=== PATIENT | male | born 1990 | race Caucasian/White ===

== ENCOUNTER 2017-06-26 18:38 | Inpatient (IN) | payer BC, OTHER ==
[~2017-06-26] VITALS: Ht 180.3 cm; Wt 68.9 kg
[2017-06-27] MEDS ORDERED: HYDROXYZINE PAMOATE 25 MG CAPSULE PO PRN ×2 (00:30→10:45)
[2017-06-27] MEDS ORDERED: diphenhydrAMINE 50 MG CAPSULE PO PRN (00:30)
[2017-06-27] MEDS ORDERED: ACETAMINOPHEN 325 MG TABLET PO PRN (00:30)
[2017-06-27] MEDS ORDERED: CLONIDINE HCL 0.1 MG TABLET PO PRN (00:30)
[2017-06-27] MEDS ORDERED: ONDANSETRON 4 MG/2 ML VIAL IM PRN (00:30)
[2017-06-27] MEDS ORDERED: DIAZEPAM 5 MG TABLET PO PRN (00:30)
[2017-06-27] MEDS ORDERED: LORAZEPAM 2 MG/1 ML VIAL IM PRN (00:30)
[2017-06-27] MEDS ORDERED: LOPERAMIDE HCL 2 MG CAPSULE PO PRN ×2 (00:30)
[2017-06-27] MEDS ORDERED: MIRALAX 17 GM POWD.PACK PO PRN (00:30)
[2017-06-27] MEDS ORDERED: MAGNESIUM HYDROXIDE 30 ML LIQUID UDC PO PRN (00:30)
[2017-06-27] MEDS ORDERED: IBUPROFEN 400 MG TABLET PO PRN (00:30)
[2017-06-27] MEDS ORDERED: METHOCARBAMOL 750 MG TABLET PO PRN (00:30)
[2017-06-27] MEDS ORDERED: DIAZEPAM 10 MG TABLET PO PRN (00:30)
[2017-06-27] MEDS ORDERED: MAG HYDROX/AL HYDROX/SIMETH 30 ML LIQUID UDC PO PRN (00:30)
[2017-06-27] MEDS ORDERED: ONDANSETRON ODT 4 MG TAB.RAPDIS SL PRN (00:30)
--- NOTE | 2017-06-27 00:50 | NUR ---
PRE-ADMISSION NOTE Pt is a 26 y/o male, seen at intake, AAOx4, no SOB with mild anxiety noted at this time. Discussed with patient the admission policies of the unit. Patient is coherent and able to respond to questions appropriately. Pt is ambulatory with steady gait. Vital signs taken and as follows: BP: 129/80, P: 83, R: 18, O2: 98%, T: 98.2, PA: 0. Weight 152, height 511 Pt verbalized understanding of instructions and teachings regarding disposal of narcotic and other controlled home medications, unit protocols such as taking of vital signs Q4H and handling and disposal of contraband. Will continue with admission upon pts arrival on the unit.
[2017-06-27 01:00] VITALS: BP 129/80
--- NOTE | 2017-06-27 01:00 | NUR ---
ADMISSION NOTE Pt is a 26 y/o male admitted on 06/27/17 for BENZO/Opiate dependence. Pt is reports allergies to Naloxone, reports history of seizure 1.5 years ago d/t Benzo withdrawal. Pt was able to provide UDS. Upon admission CIWA 12, BP: 129/80, P: 83, R: 18, O2: 98%, T: 98.2, PA: 0. Weight 152, height 511. Pt reports he does not have a primary care provider, smokes 1 pack of cigarettes/daily. Pt denies being hospitalized within past 30 days. Pt is able to understand and respond to all questions pertaining to his hospitalization. Substance Abuse History is as follows: 1.Xanax 16-20mg/daily, last intake of 8mg on 06/26/2017, as this rate for the past 3 months. 2.Heroin IV 0.5g/daily, last intake of 0.1g on 06/26/2017, at this rate for the past 3 months 3.Subutex SL 24mg/daily, last intake of 16mg on 06/26/2017, at this rate for the past 1 month. 4.Marijuana 1 bowl occasionally, last intake of 1 bowl on 06/26/2017, at this rate for 3 months. Pt reports he has been to 20 treatment facilities. Pt reports he has been to [facility] in [place] 3 times. Pt reports his longest sobriety period was for 11 months when he was 20 years ago. Pt reports regarding family history of substance abuse that his father has history of ETOH abuse. PMH: Anxiety, depression, Bipolar and withdrawal induced seizures. Upon assessment, pt is AAOx4, pt is mildly intoxicated, presents with anxiety, skin is flushed, and has mild chills and restlessness, irritated, tremors noted. Respirations even and unlabored. Denies SOB, chest pain, N/V/D. Bowel sounds active x 4, abdomen soft. PERRLA. Skin intact, no open wounds noted. Pt denies SI/HI. Educational information provided and left at bedside. Pt oriented to room and encouraged to notify staff with any concerns. Safety measures in place. Call light within reach, side rails up x 2, bed locked and in low position. Will continue to monitor.
[2017-06-27 01:06] LABS: BASOPHILS % (AUTO) 0.3 % (0.0-2.0); EOSINOPHILS # (AUTO) 0.3 K/uL (0.0-0.7); EOSINOPHILS % (AUTO) 3.8 % (0.0-7.0); HEMATOCRIT 46.1 % (36.7-47.1); HEMOGLOBIN 16.3 g/dL (12.5-16.3); LYMPHOCYTES # (AUTO) 3.4 K/uL (20.0-40.0); LYMPHOCYTES % (AUTO) 42.8 % (20.5-51.5); MEAN CORPUSCULAR HEMOGLOBIN 31.5 uug (23.8-33.4); MEAN CORPUSCULAR HGB CONC 35 g/dL (32.5-36.3); MEAN CORPUSCULAR VOLUME 89.3 fL (73.0-96.2); MONOCYTES # (AUTO) 0.9 K/uL (2.0-10.0); NEUTROPHILS # (AUTO) 3.4 K/uL (1.8-8.9); NEUTROPHILS % (AUTO) 42.1 % (38.5-71.5); PLATELET COUNT (AUTO) 285 K/uL (152-348); RED BLOOD CELL COUNT(AUTO) 5.16 MIL/uL (4.06-5.63)
[2017-06-27 01:22] LABS: ALANINE AMINOTRANSFERASE 39 U/L (16-63); ALKALINE PHOSPHATASE 117 U/L (50-136); AMYLASE 38 U/L (25-115); ASPARTATE AMINOTRANSFERASE 23 U/L (15-37); BILIRUBIN,TOTAL 0.4 mg/dL (0.2-1.0); CARBON DIOXIDE 27 mmol/L (21-32); CHLORIDE 106 mmol/L (98-107); CREATININE 0.9 mg/dL (0.6-1.3); GLUCOSE 102 mg/dL (74-106); LIPASE 108 U/L (73-393); MAGNESIUM 1.7 mg/dL (1.8-2.4); POTASSIUM 4.2 mmol/L (3.5-5.1); TOTAL PROTEIN, SERUM 7.6 g/dL (6.4-8.2); UREA NITROGEN, BLOOD 10 mg/dL (7-18)
[2017-06-27 01:26] LABS: *AMPHETAMINE, URINE NEGATIVE (NEGATIVE); *BARBITURATE, URINE NEGATIVE (NEGATIVE); *CANNABINOID, URINE POSITIVE (NEGATIVE); *COCCAINE, URINE NEGATIVE (NEGATIVE); *OPIATE, URINE NEGATIVE (NEGATIVE); *PHENCYCLIDINE SCREEN,URINE NEGATIVE (NEGATIVE)
[2017-06-27] MEDS ORDERED: ALPR2TAB2 PO (01:28)
[2017-06-27] MEDS ORDERED: BUPR8TAB4 SL (01:28)
[2017-06-27] MEDS ORDERED: QUET50TA PO (01:28)
[2017-06-27] MEDS ORDERED: QUET100T PO (01:28)
[2017-06-27 01:38] LABS: THYROID STIMULATING HORMONE 1.886 mIU/mL (0.358-3.740)
[2017-06-27] MEDS ORDERED: QUETIAPINE FUMARATE 100 MG TABLET PO ONE (01:45)
[2017-06-27] MEDS: DIAZEPAM 10 MG TABLET PO PRN ×2 (01:52→08:04)
--- NOTE | 2017-06-27 01:53 | NUR ---
RN note PRN Valium Pt noted to be anxious and fidgety. CIWA=12. Administered Valium 10 mg PO PRN as ordered. Will reassess.
[2017-06-27 01:55] LABS: ETHANOL < 3 MG/DL (0-0)
[2017-06-27] MEDS ORDERED: DIAZEPAM 10 MG TABLET ONE ×2 (01:56→02:07)
[2017-06-27] MEDS ORDERED: METHOCARBAMOL 750 MG TABLET ONE (01:57)
[2017-06-27] MEDS ORDERED: QUETIAPINE FUMARATE 100 MG TABLET ONE (01:59)
--- NOTE | 2017-06-27 02:53 | NUR ---
Upon reassessment of Valium, pt is resting in bed eyes closed, respirations even/unlabored. Safety measures in place, will continue to monitor.
--- NOTE | 2017-06-27 02:55 | NUR ---
RN note reassess Pt's CIWA=7. Pt verbalized feeling less anxious and appears calm.
[2017-06-27 04:00] VITALS: BP 124/85
--- NOTE | 2017-06-27 04:00 | NUR ---
CIWA/COWS deferred d/t pt sleeping to assess while pt is awake as ordered. BP 124/85, pulse 69, resp 18, SpO2 100% room air, temp 98.[address], will continue to monitor.
--- NOTE | 2017-06-27 07:10 | NUR ---
End of Shift Pt is a 26 year old male admitted for Benzo/Opiate dependence. Pt reports using Xanax, Heroin IV, Subutex SL and Marijuana. PMH: anxiety, depression, bipolar and withdrawal induced seizures. Pt reports allergies to naloxone, fall/seizure precautions, regular diet and full code. During shift, Seroquel and Valium administered for CIWA 12 upon reassessment, pt was sleeping in bed, respirations even/unlabored. Pt slept for 3 hours, intake of 350 ml PO, voids x1and stool x0. Safety measures in place, call light within reach, side rails up x2, bed locked and in low position. Endorsed to day shift nurse.
[2017-06-27 08:00] VITALS: BP 115/71
--- NOTE | 2017-06-27 08:05 | NUR ---
START OF SHIFT: RECEIVED PT A/O X 4. HE IS FIDGETY AND C/O RESTLESSNESS,ANXIETY,IRRITABILITY,TREMORS AND SWEATS. CIWA 9. PRN VALIUM 5 MG PO PRN GIVEN FOR S/S OF W/D . ENCOURAGED INCREASED FLUIDS. SCHEDULED MEDS ADMINISTERED. WILL MONITOR EFFECTIVENESS OF PRN MEDICATION. WILL CONTINUE TO MONITOR.
[2017-06-27] MEDS: MULTIVITAMINS,THERAPEUTIC TABLET PO SCH (08:08)
--- NOTE | 2017-06-27 09:05 | NUR ---
PRN ATIVAN EFFECTIVE AEB CIWA 5. WILL CONTINUE TO MONITOR AND OFFER SUPPORT.
[2017-06-27] MEDS ORDERED: BUPRENORPHINE HCL 2 MG TAB.SUBL SL PRN (10:00)
[2017-06-27] MEDS ORDERED: Medication Not On Formulary EA (Quetiapine Fumarate (Seroquel) 50 MG) PO SCH (10:45)
[2017-06-27 12:00] VITALS: BP 114/78
[2017-06-27] MEDS: QUETIAPINE FUMARATE 25 MG TABLET PO SCH ×2 (12:36→16:38)
[2017-06-27] MEDS: PHENOBARBITAL 60 MG TABLET PO SCH ×3 (12:40→21:27)
[2017-06-27] MEDS: BUPRENORPHINE HCL 2 MG TAB.SUBL SL SCH ×3 (12:41→21:27)
[2017-06-27 16:00] VITALS: BP 114/78
[2017-06-27] MEDS ORDERED: MAGNESIUM OXIDE 400 MG TABLET PO ONE (17:00)
--- NOTE | 2017-06-27 18:44 | NUR ---
END OF SHIFT: PT STARTED ON PHENOBARBITAL AND SUBUTEX TAPER TODAY. PRN VALIUM GIVEN AND EFFECTIVE THIS AM BEFORE TAPER STARTED. LAST COWS 8 CIWA 6.HE RESTED ON AND OFF MOST OF SHIFT AND WAS COMPLIANT WITH INCREASED FLUIDS. WILL PASS SHIFT REPORT TO ONCOMING NIGHT NURSE.
--- NOTE | 2017-06-27 19:10 | NUR ---
Start of Shift Patient Received. Patient is a 26 year old male admitted on 06/27/17 for Benzo and Opiate Dependence under the care of Dr. Bustos. Patient continues on a 6 day Phenobarbital and 5 day Subutex taper. Patient verbalizes allergies to Naloxone, wishes to be full code, following a regular diet, placed on fall and seizure precautions, and skin noted intact. Past medical history noted as Anxiety, Depression, Bipolar disorder, history of seizures. Per endorsement, patient was given PRN Valium 5mg given with medication noted to be effective. Last noted COWS 5 and CIWA 7. All needs attended to promptly. Will continue plan of care as ordered.
[2017-06-27 20:30] VITALS: BP 142/87
[2017-06-27] MEDS: QUETIAPINE FUMARATE 100 MG TABLET PO SCH (21:26)
[2017-06-27] MEDS: PREGABALIN 25 MG CAPSULE PO SCH (21:26)
[2017-06-28 00:25] VITALS: BP 121/79
[2017-06-28 04:04] VITALS: BP 114/75
--- NOTE | 2017-06-28 07:01 | NUR ---
End of Shift Patient is in bed sleeping. Breathing even and non labored. Patient is a 26 year old male admitted on 06/27/17 for Benzo and Opiate Dependence under the care of Dr. Bustos. Patient continues on a 6 day Phenobarbital and 5 day Subutex taper. Patient verbalizes allergies to Naloxone, Full Code, Regular Diet, placed on fall and seizure precautions, and skin noted intact. Past medical history noted as Anxiety, Depression, Bipolar disorder, history of seizures. No PRN Medications administered. Last noted COWS 10 and CIWA 10. All needs attended to promptly. Will endorse to continue plan of care as ordered.
[2017-06-28 08:00] VITALS: BP 120/79
--- NOTE | 2017-06-28 08:05 | NUR ---
START OF SHIFT: RECEIVED PT A/O X 4. HE C/O SWEATS,CHILLS,BODY ACHES AND ANXIETY. FINE TREMORS NOTED TO HANDS. PHENOBARB/SUBUTEX TAPERS IN PROGRESS TO MANAGE S/S OF W/D.COWS 8 CIWA 7. ENCOURAGED INCREASED FLUIDS TO ASSIST IN FACILITATING DETOX PROCESS. ENCOURAGED GROUP ATTENDANCE TODAY TO IMPROVE COPING SKILLS AND PREVENT RELAPSE. WILL CONTINUE TO MONITOR AND MANAGE S/S OF W/D.
[2017-06-28] MEDS: MULTIVITAMINS,THERAPEUTIC TABLET PO SCH (08:47)
[2017-06-28] MEDS: PREGABALIN 25 MG CAPSULE PO SCH ×3 (08:48→20:34)
[2017-06-28] MEDS: BUPRENORPHINE HCL 2 MG TAB.SUBL SL SCH ×3 (08:48→20:34)
[2017-06-28] MEDS: PHENOBARBITAL 60 MG TABLET PO SCH ×4 (08:48→20:34)
[2017-06-28] MEDS: QUETIAPINE FUMARATE 25 MG TABLET PO SCH ×3 (08:48→16:45)
[2017-06-28] MEDS ORDERED: PHENOBARBITAL 60 MG TABLET PO SCH (09:00)
[2017-06-28] MEDS ORDERED: TUBERCULIN,PURIF.PROT.DERIV. 5 TU/0.1 ML TEST ID ONE (09:00)
[2017-06-28 10:08] LABS: HEPATITIS B SURFACE AG Negative (Negative)
[2017-06-28] MEDS: DIAZEPAM 10 MG TABLET PO PRN ×2 (11:09→15:11)
--- NOTE | 2017-06-28 11:10 | NUR ---
PRN VALIUM 10 MG GIVEN FOR REPORTED ANXIETY,RESTLESSNESS AND TREMORS. CIWA 9. WILL MONITOR EFFECTIVENESS.
[2017-06-28 12:00] VITALS: BP 119/81
--- NOTE | 2017-06-28 12:10 | NUR ---
PRN VALIUM EFFECTIVE. CIWA NOW 5. WILL CONTINUE TO MONITOR AND MANAGE S/S OF W/D.
--- NOTE | 2017-06-28 13:40 | NUR ---
TRANSFER OF CARE TO RECEIVING RN
--- NOTE | 2017-06-28 13:45 | NUR ---
ENDORSEMENT RECEIVED FROM OUTGOING RN Received report from outgoing RN regarding patient. Sheetrock Applicator will be resuming care of patient.
--- NOTE | 2017-06-28 15:11 | NUR ---
PRN VALIUM Patient's CIWA 10. PRN Valium 10mg po tab given. Will continue to monitor patient.
[2017-06-28 16:00] VITALS: BP 135/80
--- NOTE | 2017-06-28 16:11 | NUR ---
REASSESSMENT PRN VALIUM Patient's CIWA 6. Med effective.
--- NOTE | 2017-06-28 18:31 | NUR ---
END OF SHIFT Patient is 26 year old male admitted for medically supervised withdrawal from alprazolam, heroin, and buprenorphine. Patient is full code with allergy to naloxone. On Phenobarbital and subutex taper. Most recent CIWA: 6 and COWS: 7. Reports anxiety, body aches, tremors, sweating and tingling sensation. Denies stuffy nose, restlessness, stomach cramps, nausea, diarrhea, and goosebumps at this time. Med complaint this shift. PRN valium given (CIWA 10) given, effective (CIWA 6). Ambulating with steady gait, no falls noted. BM X1 reported. 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
--- NOTE | 2017-06-28 19:15 | NUR ---
Start of Shift Patient Received. Patient is in his room, awake, alert and verbally responsive. Breathing even and non labored. Patient is a 26 year old male admitted on 06/27/17 for Benzo and Opiate Dependence under the care of Dr. uBstos. Patient continues on a 6 day Phenobarbital and 5 day Subutex taper. Patient verbalizes allergies to Naloxone, Full Code, Regular Diet, placed on fall and seizure precautions, and skin noted intact. Past medical history noted as Anxiety, Depression, Bipolar disorder, history of seizures. Per endorsement, Patient was given Valium 10mg x2 for increased signs and symptoms of withdrawal with medication noted to be effective. Last noted COWS 7 and CIWA 6. All needs attended to promptly. Will endorse to continue plan of care as ordered.
[2017-06-28 20:28] VITALS: BP 118/73
[2017-06-28] MEDS: QUETIAPINE FUMARATE 100 MG TABLET PO SCH (20:34)
[2017-06-29 00:20] VITALS: BP 123/79
[2017-06-29 04:31] VITALS: BP 119/76
--- NOTE | 2017-06-29 07:09 | NUR ---
End of Shift Patient Received. Patient is in bed sleeping. Breathing even and non labored. No signs of pain or discomfort. Patient is a 29 year old female admitted on 06/28/17 for Opiate Dependence under the care of Dr. Bustos. Patient was placed on PRN medications for increased signs and symptoms of withdrawal. Patient verbalized no known allergies, wishes to be full code, following a regular diet, placed on fall and seizure precautions, and skin noted intact. Patients past medical history noted as Anxiety and Depression. No PRN medications noted. Last noted COWS 2. All needs attended to promptly. Will endorse to continue plan of care as ordered. Addendum: 06/29/17 at 0712 by GRAYSON MAYS LVN Entered in Error WRONG in Error
--- NOTE | 2017-06-29 07:15 | NUR ---
End of Shift Patient is in bed sleeping. Breathing even and non labored. No signs of pain or discomfort. Patient is a 26 year old male admitted on 06/27/17 for Benzo and Opiate Dependence under the care of Dr. Bustos. Patient continues on a 6 day Phenobarbital and 5 day Subutex taper. Patient verbalizes allergies to Naloxone, Full Code, Regular Diet, placed on fall and seizure precautions, and skin noted intact. Past medical history noted as Anxiety, Depression, Bipolar disorder, history of seizures. No PRN medications administered. Last noted COWS 7 and CIWA 6. All needs attended to promptly. Will endorse to continue plan of care as ordered.
--- NOTE | 2017-06-29 07:40 | NUR ---
START OF SHIFT Rcvd endorsement from ongoing nurse, client is in room, he is a/o x4. Client presents with depressed mood, flat affect, and clammy skin, enlarged pupils. He reports body aches, chills/colds, stomach cramps, and fatigue. Client stated that he refused TB test. Encourage client to attend to group therapy for skills to maintain sober. Encourage client to increase PO fluid intake as tolerated to facilitate detox. Client is a 26 y/o male, admitted to [facility] for withdrawal from alprazolam, heroin, and buprenorphine. Client is on 6 day Phenobarbital taper, and 5 day Ativan tape, tolerating well, (day 3). Last CIWA 6/COWS 7 @ 1999. Client had an uneventful night, he slept 8.5 hrs. He reports a hx of seizures, (18 months ago). Client reports Allergy to Naloxone, full code, regular diet. Client side rails x 2 up/padded. Seizure precautions. Call light within reach.
[2017-06-29 08:20] VITALS: BP 117/64
[2017-06-29] MEDS: QUETIAPINE FUMARATE 25 MG TABLET PO SCH ×3 (08:22→16:45)
[2017-06-29] MEDS: PHENOBARBITAL 60 MG TABLET PO SCH ×2 (08:22→14:22)
[2017-06-29] MEDS: MULTIVITAMINS,THERAPEUTIC TABLET PO SCH (08:23)
[2017-06-29] MEDS: PREGABALIN 25 MG CAPSULE PO SCH ×3 (08:23→21:01)
[2017-06-29] MEDS ORDERED: BUPRENORPHINE HCL 2 MG TAB.SUBL SL SCH (09:00)
[2017-06-29] MEDS ORDERED: PHENOBARBITAL 60 MG TABLET PO SCH ×2 (09:00→21:00)
[2017-06-29] MEDS: DICYCLOMINE HCL 20 MG TABLET PO PRN (10:08)
[2017-06-29] MEDS: SERTRALINE HCL 50 MG TABLET PO SCH (10:55)
[2017-06-29 12:00] VITALS: BP 117/77
[2017-06-29] MEDS ORDERED: DIAZEPAM 5 MG TABLET PO PRN (13:45)
[2017-06-29] MEDS ORDERED: DIAZEPAM 10 MG TABLET PO PRN ×2 (13:45)
[2017-06-29] MEDS ORDERED: KETOROLAC TROMETHAMINE 30 MG INJ IM PRN (13:45)
[2017-06-29] MEDS: BACLOFEN 10 MG TABLET PO SCH ×2 (14:22→21:01)
[2017-06-29] MEDS: BUPRENORPHINE HCL 2 MG TAB.SUBL SL SCH ×2 (14:22→21:02)
[2017-06-29] MEDS ORDERED: PREGABALIN 50 MG CAPSULE PO SCH (15:00)
[2017-06-29 16:55] VITALS: BP 121/77
--- NOTE | 2017-06-29 19:15 | NUR ---
Start of Shift Patient Received. Patient is in his room, awake, alert and verbally responsive. Breathing even and non labored. Patient is a 26 year old male admitted on 06/27/17 for Benzo and Opiate Dependence under the care of Dr. Bustos. Patient continues on a 6 day Phenobarbital and 5 day Subutex taper. Patient verbalizes allergies to Naloxone, Full Code, Regular Diet, placed on fall and seizure precautions, and skin noted intact. Past medical history noted as Anxiety, Depression, Bipolar disorder, history of seizures. Patient was given PRN Clonidine, Bentyl, and Vistaril with medication noted to be effective. Last noted COWS 8 and CIWA 7. All needs attended to promptly. Will continue plan of care as ordered.
--- NOTE | 2017-06-29 19:32 | NUR ---
END OF SHIFT Client is a 26 y/o male, admitted to [facility] for withdrawal from alprazolam, heroin, and buprenorphine. Client is on 6 day Phenobarbital taper, and 5 day Ativan tape, tolerating well, (day 3). Last CIWA 7/COWS 8 @ 1600. Client needs encouragement to attend group therapy. He reports a hx of seizures, (18 months ago). Client reports Allergy to Naloxone, full code, regular diet. Client side rails x 2 up/padded. Seizure precautions. Call light within reach.
[2017-06-29 20:36] VITALS: BP 118/71
[2017-06-29] MEDS: CLONIDINE HCL 0.1 MG TABLET PO SCH (21:02)
[2017-06-29] MEDS: QUETIAPINE FUMARATE 100 MG TABLET PO SCH (21:02)
--- NOTE | 2017-06-29 23:58 | NUR ---
Start of Shift Patient Received. Patient is in his room, awake, alert and verbally responsive. Breathing even and non labored. Patient is a 26 year old male admitted on 06/27/17 for Benzo and Opiate Dependence under the care of Dr. Bustos. Patient continues on a 6 day Phenobarbital and 5 day Subutex taper. Patient verbalizes allergies to Naloxone, Full Code, Regular Diet, placed on fall and seizure precautions, and skin noted intact. Past medical history noted as Anxiety, Depression, Bipolar disorder, history of seizures. Patient was given PRN Clonidine, Bentyl, and Vistaril with medication noted to be effective. Last noted COWS 8 and CIWA 7. All needs attended to promptly. Will continue plan of care as ordered. Addendum: 06/29/17 at 2359 by GRAYSON MAYS LVN DUPLICATE: ENTERED IN ERROR
[2017-06-30 00:10] VITALS: BP 117/63
[2017-06-30 04:20] VITALS: BP 126/75
--- NOTE | 2017-06-30 07:08 | NUR ---
End of Shift Patient is in bed sleeping. Breathing even and non labored. No signs of pain or discomfort noted. Patient is a 26 year old male admitted on 06/27/17 for Benzo and Opiate Dependence under the care of Dr. Bustos. Patient continues on a 6 day Phenobarbital and 5 day Subutex taper. Patient verbalizes allergies to Naloxone, Full Code, Regular Diet, placed on fall and seizure precautions, and skin noted intact. Past medical history noted as Anxiety, Depression, Bipolar disorder, history of seizures. No PRN Medications administered. Last noted COWS 8 and CIWA 10. All needs attended to promptly. Will endorse to continue plan of care as ordered.
--- NOTE | 2017-06-30 07:30 | NUR ---
start of shift note: received pt from night nurse nurse, pt is admitted to [facility] for benzo/opiate withdrawal/dependence. pt's last cows 8 and ciwa 10. will continue to monitor pt for any changes and continue to meet pt's needs. pt without A/R to medications. pt slept 7 hrs throughout the night
[2017-06-30] MEDS: SERTRALINE HCL 50 MG TABLET PO SCH (08:55)
[2017-06-30] MEDS: BUPRENORPHINE HCL 2 MG TAB.SUBL SL SCH ×4 (08:55→20:23)
[2017-06-30] MEDS: MULTIVITAMINS,THERAPEUTIC TABLET PO SCH (08:55)
[2017-06-30] MEDS: CLONIDINE HCL 0.1 MG TABLET PO SCH ×2 (08:56→20:23)
[2017-06-30] MEDS: QUETIAPINE FUMARATE 25 MG TABLET PO SCH ×3 (08:56→17:00)
[2017-06-30] MEDS: PHENOBARBITAL 60 MG TABLET PO SCH ×3 (08:56→20:23)
[2017-06-30] MEDS: PREGABALIN 25 MG CAPSULE PO SCH ×3 (08:56→20:22)
[2017-06-30] MEDS: BACLOFEN 10 MG TABLET PO SCH ×3 (08:56→20:22)
[2017-06-30 09:00] VITALS: BP 127/76
[2017-06-30] MEDS ORDERED: PHENOBARBITAL 60 MG TABLET PO SCH (09:00)
[2017-06-30] MEDS ORDERED: BUPRENORPHINE HCL 2 MG TAB.SUBL SL SCH (09:00)
[2017-06-30 13:00] VITALS: BP 121/80
[2017-06-30 17:50] VITALS: BP 108/64
--- NOTE | 2017-06-30 19:05 | NUR ---
END OF SHIFT NOTE: PT IS IN STABLE CONDITION, NO S/S OF PAIN OR DISCOMFORT. PT IS ADMITTED TO [facility] FOR OPIATE/BENZO WITHDRAWAL/DEPENDENCE. PTS LAST COWS 4 AND CIWA 4. PT TOLERATING TAPER WELL. NO A/R NOTED. PT ATTENDED MORNING GROUPS. WILL ENDORSE PT TO BAND REAMER MACHINE OPERATOR NURSE.
--- NOTE | 2017-06-30 19:15 | NUR ---
START OF SHIFT Received 26 year old male patient admitted on 06/27/17 for Xanax, Heroin, Subutex and Marijuana dependency. Pt is full code with allergy to Naloxone. Pt reports a PMHx of anxiety, depression, bipolar d/o, and withdrawal induced seizure. He reports using Xanax 16-20 mg daily for 3 months. Last dose was 8 mg on 06/26/17. Heroin IV 0.5 gram daily for 3 months. Last dose was 0.1g on 06/26/17. Subutex 24 mg dialy for 1 month. Last dose was 16 mg on 06/26/17. And Marijuana " 1 bowl" daily for 3 months. Last dose was "1 bowl" on 06/26/17. Pt placed on 5 day phenobarbital/subutex taper and tolerating well. Per endorsement, pt refused his Seroquel at 1700. Pt is alert and oriented x4, breathing is even and unlabroed. Safety measures in place. Will monitor.
[2017-06-30 20:00] VITALS: BP 121/72
[2017-06-30] MEDS: QUETIAPINE FUMARATE 100 MG TABLET PO SCH (20:22)
[2017-07-01 00:36] VITALS: BP 110/62
[2017-07-01 04:00] VITALS: BP 118/70
--- NOTE | 2017-07-01 07:11 | NUR ---
END OF SHIFT Pt is a 26 year old male patient admitted on 06/27/17 for Xanax, Heroin, Subutex and Marijuana dependency. Pt is full code with allergy to Naloxone. Pt reports a PMHx of anxiety, depression, bipolar d/o, and withdrawal induced seizure. Pt continues on a 5 day phenobarbital/subutex taper and tolerating well. He did not receive or request PRN medications. He slept a total of 7 hrs, Intake:1091mL, Void: x2, BM:0, COWS:4, CIWA:4. Pt remains alert and oriented x4, breathing is even and unlabored. Safety measures in place. Endorsed to AM shift.
--- NOTE | 2017-07-01 07:30 | NUR ---
START OF SHIFT Rcvd endorsement from ongoing nurse, client is in room, he is a/o x4. Client presents with anxious mood, flat affect, enlarged pupils, and clammy skin. He reports decreased appetite, chills/colds, stomach cramps, and fatigue. Encourage client to attend to group therapy for skills to maintain sobriety. Encourage client to increase PO fluid intake as tolerated to facilitate detox. Client is a 26 y/o male, admitted to [facility] for withdrawal from alprazolam, heroin, and buprenorphine. Client is on 6 day Phenobarbital taper, and 5 day Ativan tape, tolerating well, (day 5). Last CIWA 4/COWS 4 @ 1999. Client had an uneventful night, he slept 7 hrs. He reports a hx of seizures, (18 months ago). Client reports Allergy to Naloxone, full code, regular diet. Client side rails x 2 up/padded. Seizure precautions. Call light within reach.
[2017-07-01 08:11] VITALS: BP 120/69
[2017-07-01] MEDS: PREGABALIN 25 MG CAPSULE PO SCH ×3 (08:37→20:30)
[2017-07-01] MEDS: BUPRENORPHINE HCL 2 MG TAB.SUBL SL SCH ×3 (08:37→20:30)
[2017-07-01] MEDS: BACLOFEN 10 MG TABLET PO SCH ×3 (08:38→20:31)
[2017-07-01] MEDS: SERTRALINE HCL 50 MG TABLET PO SCH (08:38)
[2017-07-01] MEDS: PHENOBARBITAL 60 MG TABLET PO SCH ×3 (08:38→20:31)
[2017-07-01] MEDS: MULTIVITAMINS,THERAPEUTIC TABLET PO SCH (08:38)
[2017-07-01] MEDS: CLONIDINE HCL 0.1 MG TABLET PO SCH ×2 (08:38→20:31)
[2017-07-01] MEDS: QUETIAPINE FUMARATE 25 MG TABLET PO SCH ×3 (08:39→17:16)
[2017-07-01] MEDS ORDERED: PHENOBARBITAL 60 MG TABLET PO SCH (09:00)
[2017-07-01] MEDS ORDERED: BUPRENORPHINE HCL 2 MG TAB.SUBL SL SCH (09:00)
[2017-07-01 12:59] VITALS: BP 116/69
[2017-07-01 16:30] VITALS: BP 121/73
--- NOTE | 2017-07-01 19:03 | NUR ---
START OF SHIFT NOTE: Patient is a 30 year male admitted on 06/20/2017 for Benzodiazepines and Opioid dependence, continues 5 day Phenobarbital taper since and 5 day Subutex taper. Patient tolerated well without ASE. Patient remains compliant with treatment, medications, and diet regime. Patient reports Allergy to Naloxone, is on Full Code, Regular Diet, Fall and Seizures Precautions. PMH: Anxiety, Depression, history of withdrawal-induced seizures "18 months ago", and Bipolar disorder. Patient is in the room alert and oriented x4 with stable gait. Speech is soft and clear. COWS 7, CIWA 7. Patient's anxiety agitation, nervousness, tremors that can be felt, restlessness, mild body aches, and sweating. VS: T: 98.4, HR: 70, BP: 115/65, RA O2 SAT: 97%, RR: 19, pain level: "2/10". Respirations unlabored and even. Lungs Sounds are clear thoroughly. Abdomen is soft, non-tender. Bowels Sounds presents in all x4 quadrants. Skin is intact, warm, and dry. Encouraged to fluids intake as tolerated. Encouraged to attending groups activities. All needs met. Safety measures in place: Call light within reach, bed locked, and in lowest position, padded bed rails up bilaterally. Patient endorsed by day shift nurse, report received. Addendum: 07/02/17 at 0644 by DEJON SOMMERS RN Patient is a 26 year male
--- NOTE | 2017-07-01 19:03 | NUR ---
END OF SHIFT Client is a 26 y/o male, admitted to [facility] for withdrawal from alprazolam, heroin, and buprenorphine. Client is on 6 day Phenobarbital taper, and 5 day Ativan tape, tolerating well, (day 5). Last CIWA 6/COWS 6 @ 1600. Client is compliant with 1/3 of group therapy. Consumes 75-100% of meals. Adequate PO fluid intake 1550mL, void x 3. He reports a hx of seizures, (18 months ago). Client reports Allergy to Naloxone, full code, regular diet. Client side rails x 2 up/padded. Seizure precautions. Call light within reach.
[2017-07-01 20:00] VITALS: BP 115/65
[2017-07-01] MEDS: QUETIAPINE FUMARATE 100 MG TABLET PO SCH (20:31)
[2017-07-02] VITALS: BP 108/64
--- NOTE | 2017-07-02 04:00 | NUR ---
VS REFUSED AND COWS/CIWA DEFERRED Patient refused to be woken up for 0400 VS. COWS/CIWA deferred d/t patient sleeping to assess while patient is awake. Safety measures on place by hospital policy: Call light within reach, bed in lowest position and locked, side rails up x2. Will continue to monitor closely.
--- NOTE | 2017-07-02 06:45 | NUR ---
END OF SHIFT NOTE: Patient is a 26 year male admitted on 06/20/2017 for Benzodiazepines and Opioid dependence, continues 5 day Phenobarbital taper and 5 day Subutex taper. Patient tolerated well without ASE. Patient remains compliant with treatment, medications, and diet regime. Patient reports Allergy to Naloxone, is on Full Code, Regular Diet, Fall and Seizures Precautions. PMH: Anxiety, Depression, history of withdrawal-induced seizures "18 months ago", and Bipolar disorder. Last COWS 5,CIWA 4 @0000. Patient's presented with anxiety agitation, nervousness, tremors that can be felt, restlessness, mild body aches, and sweating. VSWNL. Respirations unlabored and even. Skin is intact, warm, and dry. No PRN Medications given. Patient slept 8 hours, intake 500 ml, voided x1. Encouraged to fluids intake as tolerated. Encouraged to attending groups activities. All needs met. Safety measures in place: Call light within reach, bed locked, and in lowest position, padded bed rails up bilaterally. Patient endorsed to day shift nurse, report given.
--- NOTE | 2017-07-02 07:35 | NUR ---
START OF SHIFT Received report from overnight houseperson nurse. Pt is in his room getting ready for the day. He is a 26 yo male admitted to [facility] on 06/27 for BZD and opiate dependence. He is A&O and ambulatory. Allergic to naloxone, full code status, and on a regular diet. PMH of withdrawal related seizures, anxiety, depression, and biplolar. On admission he reported using xanax 16-20mg per day, heroin 0.5 grams per day, subutex 24mg per day, and marijuana. 6 day phenobarbital and 6 day subutex tapers started 06/27. He reports chills, runny nose, and anxiety. Tapers due this morning. Fall and seizure precautions in place. Bed is down with call light in reach.
[2017-07-02 08:00] VITALS: BP 121/63
[2017-07-02] MEDS: BACLOFEN 10 MG TABLET PO SCH ×3 (08:29→20:55)
[2017-07-02] MEDS: CLONIDINE HCL 0.1 MG TABLET PO SCH ×2 (08:29→20:55)
[2017-07-02] MEDS: PREGABALIN 25 MG CAPSULE PO SCH ×3 (08:29→20:55)
[2017-07-02] MEDS: SERTRALINE HCL 50 MG TABLET PO SCH (08:31)
[2017-07-02] MEDS: PHENOBARBITAL 60 MG TABLET PO SCH ×2 (08:31→20:56)
[2017-07-02] MEDS: QUETIAPINE FUMARATE 25 MG TABLET PO SCH ×3 (08:31→17:19)
[2017-07-02] MEDS: MULTIVITAMINS,THERAPEUTIC TABLET PO SCH (08:31)
[2017-07-02] MEDS: BUPRENORPHINE HCL 2 MG TAB.SUBL SL SCH ×2 (08:32→20:55)
[2017-07-02 12:00] VITALS: BP 109/62
[2017-07-02 16:00] VITALS: BP 139/79
[2017-07-02] MEDS: IBUPROFEN 600 MG TABLET PO PRN (17:19)
--- NOTE | 2017-07-02 17:20 | NUR ---
PRN Motrin Pt c/o back ache 11/22. PRN Motrin administered.
--- NOTE | 2017-07-02 18:20 | NUR ---
PRN Motrin reassessment PRN Motrin effective. Pt's pain level reduced to 2/10.
--- NOTE | 2017-07-02 19:27 | NUR ---
END OF SHIFT Report provided to parachute officer nurse. Pt is attending a group meeting. He is a 26 yo male admitted to [facility] on 06/27 for BZD and opiate dependence. He is A&O and ambulatory. Allergic to naloxone, full code status, and on a regular diet. PMH of withdrawal related seizures, anxiety, depression, and biplolar. On admission he reported using xanax 16-20mg per day, heroin 0.5 grams per day, subutex 24mg per day, and marijuana. Modified phenobarbital and subutex tapers started 06/27. PRN Motrin administered for back pain. Last COWS 4 and CIWA 4. He drank 1910mL. Fall and seizure precautions in place. Bed is down with call light in reach.
--- NOTE | 2017-07-02 19:35 | NUR ---
START OF SHIFT Patient is a 26-year-old male admitted on 06/27/17 for Xanax, heroin, and Subutex dependence with concurrent use of cannabis. Patient has a past medical history of anxiety, depression, bipolar disorder, and withdrawal induced seizures. Patient is allergic to naloxone, FULL code, on regular diet. Patient's last seizure was 1.5 years ago, related to withdrawal. Patient is currently on a phenobarbital and Subutex taper, tolerating well. Patient is on fall and seizure precautions. Upon assessment, patient is lying in bed watching television. Patient is alert and oriented x4, stating he is doing well today. Safety measures in place, bed locked in low position, side rails up x2, call light within reach. Will continue to monitor.
[2017-07-02 20:00] VITALS: BP 118/70
[2017-07-02] MEDS: QUETIAPINE FUMARATE 100 MG TABLET PO SCH (20:55)
[2017-07-03] VITALS: BP 99/59
--- NOTE | 2017-07-03 | NUR ---
MIDNIGHT COWS & CIWA DEFERRED Midnight COWS and CIWA deferred due to patient asleep; to be assessed and scored while patient is awake, per protocol. Patient's respirations are 12/min, even and unlabored. Safety measures in place, bed locked in low position, side rails up x2, call light within reach. Will continue to monitor.
[2017-07-03 04:00] VITALS: BP 97/60
--- NOTE | 2017-07-03 04:00 | NUR ---
4AM COWS & CIWA DEFERRED 4AM COWS and CIWA deferred due to patient asleep; to be assessed and scored while patient is awake, per protocol. Patient's respirations are 18/min, even and unlabored. Safety measures in place, bed locked in low position, side rails up x2, call light within reach. Will continue to monitor.
--- NOTE | 2017-07-03 07:07 | NUR ---
END OF SHIFT Patient is a 26-year-old male admitted on 06/27/17 for Xanax, heroin, and Subutex dependence with concurrent use of cannabis. Patient has a past medical history of anxiety, depression, bipolar disorder, and withdrawal induced seizures. Patient is allergic to naloxone, FULL code, on regular diet. Patient's last seizure was 1.5 years ago, related to withdrawal. Patient is currently on a phenobarbital and Subutex taper, tolerating well. Patient is on fall and seizure precautions. Patient slept for 8 hours, total intake of 400 mL, void x3, and stool x0. Patient did not receive any PRNs. Last COWS score 2, CIWA 3. Safety measures in place, bed locked in low position, side rails up x2, call light within reach. Will endorse to day shift.
--- NOTE | 2017-07-03 07:35 | NUR ---
START OF SHIFT Received report from retail shift manager nurse. Pt is lying in bed resting. He is a 26 yo male admitted to [facility] on 06/27 for BZD and opiate dependence. He is A&O and ambulatory. Allergic to naloxone, full code status, and on a regular diet. PMH of withdrawal related seizures, anxiety, depression, and biplolar. On admission he reported using xanax 16-20mg per day, heroin 0.5 grams per day, subutex 24mg per day, and marijuana. 6 day phenobarbital and 6 day subutex tapers started 06/27. Skin is warm and moist. Fall and seizure precautions in place. Bed is down with call light in reach.
[2017-07-03 08:00] VITALS: BP 118/73
[2017-07-03] MEDS: CLONIDINE HCL 0.1 MG TABLET PO SCH ×2 (08:41→21:04)
[2017-07-03] MEDS: BACLOFEN 10 MG TABLET PO SCH ×3 (08:41→21:03)
[2017-07-03] MEDS: PREGABALIN 25 MG CAPSULE PO SCH ×3 (08:42→21:04)
[2017-07-03] MEDS: QUETIAPINE FUMARATE 25 MG TABLET PO SCH ×4 (08:43→17:50)
[2017-07-03] MEDS: SERTRALINE HCL 100 MG TABLET PO SCH (08:43)
[2017-07-03] MEDS: MULTIVITAMINS,THERAPEUTIC TABLET PO SCH (08:43)
[2017-07-03] MEDS: IBUPROFEN 600 MG TABLET PO PRN ×2 (08:44→14:58)
[2017-07-03] MEDS: DICYCLOMINE HCL 20 MG TABLET PO PRN (08:44)
--- NOTE | 2017-07-03 08:45 | NUR ---
PRN Motrin and Bentyl Pt reports headache, low back ache, and stomach cramps. PRN Motrin and Bentyl administered.
[2017-07-03] MEDS ORDERED: SERTRALINE HCL 50 MG TABLET PO SCH (09:00)
[2017-07-03] MEDS ORDERED: PHENOBARBITAL 60 MG TABLET PO SCH (09:00)
[2017-07-03] MEDS ORDERED: BUPRENORPHINE HCL 2 MG TAB.SUBL SL SCH (09:00)
--- NOTE | 2017-07-03 09:45 | NUR ---
PRN Motrin and Bentyl reassessment PRN Motrin and Bentyl effective. Pt reports headache, back ache, and stomach cramps are relieved.
[2017-07-03 12:30] VITALS: BP 94/51
--- NOTE | 2017-07-03 15:00 | NUR ---
PRN Motrin Pt reports headache 11/22. Encouraged more fluids. PRN Motrin administered.
--- NOTE | 2017-07-03 16:00 | NUR ---
PRN Motrin reassessment PRN Motrin effective. Pt reports headache is relieved. Pain level 0/10.
[2017-07-03] MEDS ORDERED: HYDR-3895 PO (16:19)
[2017-07-03] MEDS ORDERED: METH-406 PO (16:19)
[2017-07-03] MEDS ORDERED: DIPH50CA37 PO (16:19)
[2017-07-03] MEDS ORDERED: QUET25TA PO (16:19)
[2017-07-03] MEDS ORDERED: DICY20TA28 PO (16:19)
[2017-07-03] MEDS ORDERED: CLON0.1T14 PO (16:19)
[2017-07-03] MEDS ORDERED: SERT100T12 PO (16:19)
[2017-07-03] MEDS ORDERED: IBUP-1955 PO (16:19)
[2017-07-03] MEDS ORDERED: PREG25CA PO (16:19)
[2017-07-03 16:30] VITALS: BP 100/70
--- NOTE | 2017-07-03 19:05 | NUR ---
Start of Shift Patient Received. Patient is in his room, awake, alert and verbally responsive. Breathing even and non labored. Patient is a 26 year old male admitted on 06/27/14 for Benzo and Opiate Dependence under the care of Dr. Bustos. Patient has completed a 6 day Phenobarbital taper and 6 day Subutex taper. Patient verbalizes allergies to Naloxone, wishes to be full code, following a regular diet, placed on fall and seizure precautions, and skin noted intact. Past medical history noted as Anxiety, Depression, Bipolar, and history of seizures due to withdrawal. Per endorsement, patient was given PRN Bentyl and Motrin x2 with medications noted to be effective. All needs attended to promptly. Will continue plan of care as ordered.
--- NOTE | 2017-07-03 19:09 | NUR ---
END OF SHIFT Report provided to shift superintendent nurse. Pt is attending a group meeting. He is a 26 yo male admitted to [facility] on 06/27 for BZD and opiate dependence. He is A&O and ambulatory. Allergic to naloxone, full code status, and on a regular diet. PMH of withdrawal related seizures, anxiety, depression, and biplolar. On admission he reported using xanax 16-20mg per day, heroin 0.5 grams per day, subutex 24mg per day, and marijuana. 6 day phenobarbital and 6 day subutex tapers completed and he is scheduled for discharge tomorrow. PRN Bentyl and Motrin x2 administered. Last COWS 3 and CIWA 2. He drank 1250mL. Fall and seizure precautions in place. Bed is down with call light in reach.
[2017-07-03 20:09] VITALS: BP 120/78
[2017-07-03] MEDS: QUETIAPINE FUMARATE 100 MG TABLET PO SCH (21:03)
[2017-07-04] VITALS: BP 101/67
[2017-07-04 04:15] VITALS: BP 106/61
--- NOTE | 2017-07-04 07:01 | NUR ---
End of Shift Patient is in his room sleeping. Breathing even and non labored. Patient is a 26 year old male admitted on 06/27/14 for Benzo and Opiate Dependence under the care of Dr. Bustos. Patient has completed a 6 day Phenobarbital taper and 6 day Subutex taper. Patient verbalizes allergies to Naloxone, Full Code, Regular Diet, placed on fall and seizure precautions, and skin noted intact. Past medical history noted as Anxiety, Depression, Bipolar, and history of seizures due to withdrawal. Patient is set for discharge today 07/04/17. No PRN Medications administered. All needs attended to promptly. Will endorse to continue plan of care as ordered.
--- NOTE | 2017-07-04 07:30 | NUR ---
Start of Shift Notes: Received patient in his room. Alert and verbally responsive. Oriented x 4 Able to make his needs known. Respirations even and unlabored. No SOB noted. Skin warm and dry to touch. Abdomen soft and non-distended with (+) BS in all 4 quadrants. No complains of N/V/D or abdominal discomfort noted. Bladder non-distended. Voids independently. Ambulatory ad anjali with steady gait. Patient is a 26 year old female admitted for opiate and BZO dependece that completed his tape. NKA. FULL CODE. Regular diet. On fall and seizure precautions. Educated patient on his discharge process. Patient verbalized good understanding.
[2017-07-04 08:00] VITALS: BP 102/56
[2017-07-04 08:21] VITALS: BP 110/66
[2017-07-04] MEDS: PREGABALIN 25 MG CAPSULE PO SCH (08:21)
[2017-07-04] MEDS: SERTRALINE HCL 100 MG TABLET PO SCH (08:21)
[2017-07-04] MEDS: QUETIAPINE FUMARATE 25 MG TABLET PO SCH (08:21)
[2017-07-04] MEDS: MULTIVITAMINS,THERAPEUTIC TABLET PO SCH (08:21)
[2017-07-04] MEDS: BACLOFEN 10 MG TABLET PO SCH (08:21)
[2017-07-04] MEDS: CLONIDINE HCL 0.1 MG TABLET PO SCH (08:21)
--- NOTE | 2017-07-04 09:25 | NUR ---
Discharged: Patient left the unit at this time. COWS 1. CIWA 1 due to mild anxiety. VS stable. Educated patient on the discharge instructions. Patient verbalized good understanding. All clothings, belongings, valuables and medications returned to the patient. CLIENT SERVICE CONSULTANT cabinets and cassette were checked for any belongings. Picked up by [employer] at this time.
== END 2017-07-04 09:25 | disposition other institution (70) | DRG 895 ==
LOC: SRC 06-27 00:09
PROVIDERS: ADMIT Internal Medicine; ATTEND Internal Medicine
PROC: HZ2ZZZZ Detoxification Services for Substance Abuse Treatment (ICD-10-PCS; principal; 2017-06-27)
PROC: HZ41ZZZ Group Counseling for Substance Abuse Treatment, Behavioral (ICD-10-PCS; 2017-07-02)
DX: F13.232 Sedative, hypnotic or anxiolytic dependence with withdrawal with perceptual disturbance (principal); I15.9 Secondary hypertension, unspecified; E83.42 Hypomagnesemia; F31.9 Bipolar disorder, unspecified; F12.90 Cannabis use, unspecified, uncomplicated; F11.23 Opioid dependence with withdrawal; F17.210 Nicotine dependence, cigarettes, uncomplicated; F41.9 Anxiety disorder, unspecified; Z81.1 Family history of alcohol abuse and dependence; Z91.89 Other specified personal risk factors, not elsewhere classified; Z79.899 Other long term (current) drug therapy
CPT/HCPCS: 36415; 70030-TC; 80307; 80346; 80349; 83690; 83735; 84443; 85025; 86592; 86705; 86803; 87340; 87806; A4663; G0480; J8499